=== PATIENT | male | born 1985 | race Caucasian/White ===

== ENCOUNTER 2025-08-04 10:44 | Emergency (ER) | payer OTHER, SELFPAY ==
[2025-08-04 10:51] VITALS: BP 146/99
--- NOTE | 2025-08-04 11:27 | ED.GENMED ---
History of Present Illness
General
Chief Complaint: Musculo-Skeletal Complaint
Time Seen by Provider: 08/04/25 11:08
History of Present Illness
History of Present Illness:
39-year-old man presenting to the emergency department back pain. Patient is a 3 weeks ago he lifted a heavy log and then had lower back pain. Has tweaked his back before this felt very similar. He does state he has been using ibuprofen as well
as physical therapy with some relief though not complete resolution. He does state now that he is having shooting pain down to his right groin. No numbness tingling. No weakness. No fevers chills. No saddle anesthesia. No urinary incontinence
or retention. No spinal injections. No history of IV drug use
Phy Exam
Physical Exam
Physical Exam:
GENERAL: in no acute distress
HEENT: normocephalic, extraocular movements intact, moist oral mucosa
NECK: normal inspection
Back: No midline spinal tenderness
RESPIRATORY: no respiratory distress, clear to auscultation bilaterally
CARDIOVASCULAR: regular rate and rhythm
ABDOMEN/: soft, non-distended, non-tender to palpation, no rebound or guarding
EXTREMITIES: non-tender, no edema/swelling
NEUROLOGIC: awake and alert, moves all extremities, positive straight leg raise right side, normal sensation, equal strength in lower extremity
SKIN: warm
Course
Orders/Labs/Results
Orders:
Orders
08/04/25 11:21
Dexamethasone [Decadron] 10 mg PO NOW STA
Vital Signs
Initial and Last Documented VS:
Initial Vital Signs
Temp Pulse Resp BP Pulse Ox
98.4 F 74 16 146/99 98
08/04/25 10:51 08/04/25 10:51 08/04/25 10:51 08/04/25 10:51 08/04/25 10:51
Last Documented Vital Signs
Temp Pulse Resp BP Pulse Ox
98.4 F 74 16 146/99 98
08/04/25 10:51 08/04/25 10:51 08/04/25 10:51 08/04/25 10:51 08/04/25 10:51
MDM/Problems Addressed
Differential Diagnosis Includes:
Patient is a 39-year-old man presenting to the emergency department with lower back pain that now radiates down to his right groin.The history and physical does not raise any suspicion of a dangerous underlying cause of the back pain. This patient
does not have any fever, tachycardia, history of IV drug use, immunocompromise or steroid use to suggest risk for epidural abscess, discitis or osteomyelitis. There is no report of saddle anesthesia, complaints to suggest loss of rectal tone, no
complaints of urinary retention or incontinence to suggest cauda equina syndrome. There no vertebral point tenderness to suggest tumor, infection or fracture.The history and physical exam do not suggest an aortic dissection or AAA, kidney stone,
pancreatis, or other acute cause for the symptoms. The patient has no neurologic deficits to suggest cord compression or transverse myelitis. No further diagnostic evaluation with emergent imaging or blood work is indicated at this time. Will give
steroids and have patient follow-up with physical therapy. Patient advised to follow-up with spine if symptoms persist
*Pulse Oximetry
SaO2: 98
Oxygen Mode of Delivery: Room air
Patient hypoxic: no
*Critical Care Note
Total Time (30-74mins, 75-104mins- exclusive of procedures): Not Applicable
ED Attending Note
-
Portions of this chart may have been created with voice recognition software.� Occasional wrong word or��sound alike� substitutions may have occurred due to the inherent limitations of voice recognition software.
Discharge Plan
Departure
Patient Disposition: Home (Routine Discharge)
Date of Disposition: 08/04/25
Time of Disposition: 11:21
Patient with high blood pressure during this ER visit?: Yes
Discharge Problem:
Sciatica
Instructions: Sciatica - ED (DC)
Prescriptions:
New
methylprednisolone [Medrol (Jhon)] 4 mg tablets,dose pack
See Rx Instructions .ROUTE .COMPLEX Qty: 21 0RF
Rx Instructions:
orally per package directions
Activity Restrictions/Additional Instructions:
Thank You for choosing [facility].
It was a pleasure meeting you and taking part in your care. We hope for your continued healing and wellness.
You were seen in the Emergency Department today for back pain. Please use the steroids as prescribed. Please follow-up with spine surgery as well as continuing PT.
We would like for you to follow up with your primary care physician for further evaluation. If you experience fever, worsening of your symptoms, or develop any other new or concerning symptoms, please return to the Emergency Department immediately.
Please see the attached sheet for additional information.
Interventions
Interventions:
*Risk Screen - Suicide Last Done: 08/04/25 10:51
*Neglect/Abuse Screening Last Done: 08/04/25 10:51
Discharge Date and Time
Print Language: [place] CITIZ[place]
[2025-08-04] MEDS: DECADRON 10 MG PO (11:31)
== END 2025-08-04 11:36 | disposition home or self-care (01) ==
LOC: EMR 10:44
PROVIDERS: EMERGENCY PHYSICIAN Student in an Organized Health Care Education/Training Program
DX: M54.41 Lumbago with sciatica, right side (principal)
CPT/HCPCS: 99283

== ENCOUNTER 2025-08-13 09:45 | Emergency (ER) | payer OTHER, SELFPAY ==
[2025-08-13 09:47] VITALS: BP 148/94
--- NOTE | 2025-08-13 10:06 | ED.GENMED ---
History of Present Illness
<Rose Watkins MD, Resident - Last Filed: 08/13/25 11:04>
General
Chief Complaint: Back Pain
Source: patient
Exam Limitations: none
Time Seen by Provider: 08/13/25 10:06
Nursing documentation reviewed up to this point in time: agreed with
History of Present Illness
History of Present Illness:
40yo M with no significant PMH who presents with ongoing lower back pain, s/p medrol jhon 1 week ago.
Pt was seen in the ED last week w the following presentation:
'39-year-old man presenting to the emergency department back pain. Patient is a 3 weeks ago he lifted a heavy log and then had lower back pain. Has tweaked his back before this felt very similar. He does state he has been using ibuprofen as well
as physical therapy with some relief though not complete resolution. He does state now that he is having shooting pain down to his right groin. No numbness tingling. No weakness. No fevers chills. No saddle anesthesia. No urinary incontinence
or retention. No spinal injections. No history of IV drug use.'
Was dx with likely sciatica, rx medrol jhon, and referred to collections specialist. Pt reports that steroids improved the pain and reduced the distribution of the pain, but he has since stopped the steroids and has been having excruciating pain for the
last few days. He tried to make appt w collections specialist but there were no availabilities in the near term. Presenting to ED today due to pain interfering with ADLs. States that pain is localized in a band-like distribution across the lower back,
extending into the L groin/lower abdomen and R gluteus. Denies any paresthesias or numbness. Denies any incontinence. Denies paresthesias down the R leg but states that minimal flexion at the R hip causes severe, sharp, spasm-like pain the low back.
Extension of R knee while sitting elicits same pain. States that ibuprofen, tylenol, flexeril (tried taking for 2 days), heating pads, & stretching have not helped his pain. Not exacerbated by spinal extension.
Past History
<Rose Watkins MD, Resident - Last Filed: 08/13/25 11:04>
Past History
ED Past Medical History: None
Review of Systems
<Rose Watkins MD, Resident - Last Filed: 08/13/25 11:04>
Review of Systems
Allergies reviewed?: Yes
All Other Systems: ROS reviewed and negative except as documented in HPI and ROS
Constitutional: Reports no symptoms
EENT: Reports no symptoms
Respiratory: Reports no symptoms
Cardiac: Reports no symptoms
ABD/GI: Reports no symptoms
: Reports no symptoms
Musculoskeletal: Reports back pain
Skin: Reports no symptoms
Neurological: Reports no symptoms
Endocrine: Reports no symptoms
Hematologic/Lymphatic: Reports no symptoms
Psychiatric: Reports no symptoms
Phy Exam
<Rose Watkins MD, Resident - Last Filed: 08/13/25 11:04>
General Physical Exam
General Presentation: mild distress
General age: appears stated age
General Skin: warm and dry
General Habitus: normal
General Mental: alert
Cardiovascular Exam
Cardiovascular Exam: regular rate/rhythm and no edema
Pulmonary Exam
Pulmonary Exam: no respiratory distress
Gastrointestinal Exam
Gastrointestinal Exam: non distended
Neurological Exam
Neurological Exam: alert
Musculoskeletal Exam
Musculoskeletal Exam: other (lower back/pelvis/spine nontender to palpation; R hip flexion & R knee extension limited by back pain; strength on R knee flexion & ankle flexion full )
Psychiatric Exam
Psychiatric Exam: anxious
Course
<Rose Watkins MD, Resident - Last Filed: 08/13/25 11:04>
Orders/Labs/Results
Orders:
Orders
08/13/25 10:59
Ketorolac [Toradol] 30 mg IM NOW STA
Vital Signs
Initial and Last Documented VS:
Initial Vital Signs
Temp Pulse Resp BP Pulse Ox
98.2 F 95 16 148/94 98
08/13/25 09:47 08/13/25 09:47 08/13/25 09:47 08/13/25 09:47 08/13/25 09:47
Last Documented Vital Signs
Temp Pulse Resp BP Pulse Ox
98.2 F 95 16 148/94 98
08/13/25 09:47 08/13/25 09:47 08/13/25 09:47 08/13/25 09:47 08/13/25 10:27
<Dev Brown DO - Last Filed: 08/13/25 11:05>
Orders/Labs/Results
Orders:
Orders
08/13/25 10:59
Ketorolac [Toradol] 30 mg IM NOW STA
Vital Signs
Initial and Last Documented VS:
Initial Vital Signs
Temp Pulse Resp BP Pulse Ox
98.2 F 95 16 148/94 98
08/13/25 09:47 08/13/25 09:47 08/13/25 09:47 08/13/25 09:47 08/13/25 09:47
Last Documented Vital Signs
Temp Pulse Resp BP Pulse Ox
98.2 F 95 16 148/94 98
08/13/25 09:47 08/13/25 09:47 08/13/25 09:47 08/13/25 09:47 08/13/25 10:27
<Rose Watkins MD, Resident - Last Filed: 08/13/25 11:04>
MDM/Problems Addressed
Differential Diagnosis Includes:
Ddx:
Sciatic nerve pain, impinged by inflammation s/p accident
Less likely:
Herniated disc (back pain not made worse by extension, no radicular paresthesias)
Spinal stenosis (back pain made worse by flexion, young pt)
R/o
Cauda equina syndrome (no saddle anesthesia, incontinence, bilat leg weakness)
Intraabdominal process (not likely given lack of abd sx, n/v, f/c)
MDM/Problems Addressed:
- Discharge with prednisone taper and tizanidine for sx mgmt
- Referral to pain mgmt Lamberto Marin
<Rose Watkins MD, Resident - Last Filed: 08/13/25 11:04>
*Pulse Oximetry
SaO2: 98
Oxygen Mode of Delivery: Room air
Patient hypoxic: no
*Critical Care Note
Total Time (30-74mins, 75-104mins- exclusive of procedures): Not Applicable
ED Attending Note
<Rose Watkins MD, Resident - Last Filed: 08/13/25 11:04>
-
Portions of this chart may have been created with voice recognition software.� Occasional wrong word or��sound alike� substitutions may have occurred due to the inherent limitations of voice recognition software.
<Dev Brown, - Last Filed: 08/13/25 11:05>
ED Attending Note
Patient seen and examined by attending physician: Yes
I performed a history and physical exam of patient and discussed management with resident, I reviewed resident's note and agree with documented findings and plan of care.: Yes
ED Attending Note:
I agree with Rose's note
Patient presents with continued low back pain. No history of IV drug abuse. No bowel or bladder dysfunction. No focal weakness. No radicular symptoms
General: Awake, Alert, Oriented X3. No acute distress.
Vitals: unremarkable
Head: Atraumatic
Eyes: Pupils equal, EOMI
Throat: Airway intact, no exudates
Neck: Trachea midline
Abd: Soft, Nontender, No pulsatile mass
Back: Mild paraspinal tenderness to palpation. No midline tenderness to palpation or percussion. No CVA tenderness to percussion
Neuro: Reflexes intact, sensation intact, muscle strength intact
Skin: Warm, dry, no rash
Extremities: pulses equal b/l, no edema
Analgesia, pain management
Discharge Plan
Departure
Patient Disposition: Home (Routine Discharge)
Date of Disposition: 08/13/25
Time of Disposition: 10:48
Patient with high blood pressure during this ER visit?: No
Condition: Fair
Covid-19: Not Applicable
Discharge Problem:
Sciatic nerve pain
Prescriptions:
New
tizanidine 4 mg capsule
4 mg PO BID PRN (Reason: back pain) Qty: 60 0RF
prednisone 10 mg tablet
10 mg PO DIRECTED Qty: 30 0RF
Rx Instructions:
Take By Mouth:
40 mg daily x3 days, 30 mg daily x3 days,
20 mg daily x3 days, 10 mg daily x3 days.
No Action
methylprednisolone [Medrol (Jhon)] 4 mg tablets,dose pack
See Rx Instructions .ROUTE .COMPLEX Qty: 21 0RF
Rx Instructions:
orally per package directions
Referrals:
Lamberto Marin MD [Active, Anesthesiology] - Follow up in 5-7 days
Jenni Pereira DO [Family Provider, General]
Activity Restrictions/Additional Instructions:
You were seen in the ED for persistent spasmodic, sharp low back pain worsened by hip flexion, likely due to sciatic nerve irritation and reactive muscle spasms.
We have given you a steroid taper (prednisone) and a new type of muscle relaxant to try (tizanidine) to manage your symptoms. You may take 4mg tizanidine every 12hours as needed or at bedtime; do not take for more than 4 weeks. Take the prednisone
taper as directed on the package.
Please see Dr. Lamberto Marin as soon as possible - he is a pain management nurse who typically can see new patients in the near-term.
Return to the ED if you develop urinary or fecal incontinence, weakness in your legs, or numbness and tingling in the groin area.
Interventions
Interventions:
*Risk Screen - Suicide Last Done: 08/13/25 09:47
*General Assessment Last Done: 08/13/25 09:57
*Neglect/Abuse Screening Last Done: 08/13/25 09:47
*ED- Fall Risk Assessment Last Done: 08/13/25 09:57
*ED COVID-19 Vaccine History Last Done: 08/13/25 09:57
*ED Influenza Vaccine History Last Done: 08/13/25 09:57
ED-Musculoskeletal Assessment Last Done: 08/13/25 09:57
Discharge Date and Time
Print Language: AMHARIC
[2025-08-13] MEDS: TORADOL 30 MG IM (11:14)
== END 2025-08-13 11:20 | disposition home or self-care (01) ==
LOC: EMR 09:45
PROVIDERS: EMERGENCY PHYSICIAN Emergency Medicine; FAMILY PHYSICIAN Family Medicine
DX: M54.40 Lumbago with sciatica, unspecified side (principal)
CPT/HCPCS: 96372; 99284